=== PATIENT | female | born 1945 | race Asian ===

== ENCOUNTER 2018-03-02 11:10 | Emergency (ER) | payer MEDICARE, OTHER ==
[~2018-03-02] VITALS: Ht 167.6 cm; Wt 56.2 kg
[2018-03-02 11:31] VITALS: BP 159/86; Ht 167.6 cm; Wt 56.2 kg
== END 2018-03-02 13:13 | disposition home or self-care (01) ==
LOC: ED 11:10
DX: S76.012A Strain of muscle, fascia and tendon of left hip, initial encounter (principal); S09.90XA Unspecified injury of head, initial encounter; M54.2 Cervicalgia; M79.652 Pain in left thigh; W01.198A Fall on same level from slipping, tripping and stumbling with subsequent striking against other object, initial encounter; Y93.89 Activity, other specified; Y99.8 Other external cause status; Y92.89 Other specified places as the place of occurrence of the external cause